=== PATIENT | female | born 1945 | race Caucasian/White ===

== ENCOUNTER 2018-06-03 21:38 | Emergency (ER) | payer OTHER ==
[~2018-06-03] VITALS: Ht 154.9 cm; Wt 60.3 kg
[2018-06-03 21:45] VITALS: Ht 154.9 cm; Wt 60.3 kg
[2018-06-03 23:51] LABS: BASOPHIL % 0.5 % (0-2); PLATELET COUNT 216 x10^3mcL (130-400); RED CELL DISTRIBUTION WIDTH 13.3 % (11.5-14.5)
[2018-06-04] LABS: CALCIUM 8.1 mg/dL (8.5-10.1); CARBON DIOXIDE 23.6 mmol/L (21-32); CHLORIDE SERUM 106 mmol/L (98-107); CREATININE SERUM 0.7 mg/dL (0.6-1.0); GLUCOSE SERUM 101 mg/dL (74-106); POTASSIUM SERUM 3.5 mmol/L (3.5-5.1); SODIUM SERUM 141 mmol/L (136-145)
[2018-06-04 00:06] LABS: ALKALINE PHOSPHATASE 49 U/L (46-116); ALT/SGPT 15 U/L (14-59); AST/SGOT 16 U/L (15-37); BILIRUBIN TOTAL 0.2 mg/dL (0.20-1.00); TOTAL PROTEIN, SERUM 6.5 g/dL (6.4-8.2)
[2018-06-04 00:16] LABS: ALBUMIN 3.2 g/dL (3.4-5.0)
[2018-06-04 01:43] VITALS: BP 106/74
== END 2018-06-04 01:43 | disposition home or self-care (01) ==
LOC: ED 21:38
PROVIDERS: Emergency Medicine
DX: S13.4XXA Sprain of ligaments of cervical spine, initial encounter (principal); R51 Headache; V89.2XXA Person injured in unspecified motor-vehicle accident, traffic, initial encounter; Y93.89 Activity, other specified; Y92.89 Other specified places as the place of occurrence of the external cause; Y99.8 Other external cause status
CPT/HCPCS: 36415